=== PATIENT | male | born 1990 | race Caucasian/White ===

== ENCOUNTER 2017-07-27 10:44 | Emergency (ER) | payer SELFPAY ==
[~2017-07-27] VITALS: Ht 175.3 cm; Wt 127.0 kg
[2017-07-27] MEDS ORDERED: HYDROCODONE/ACETAMINOPHEN 5-325 MG TABLET PO ONE (11:30)
[2017-07-27] MEDS ORDERED: BUPIVACAINE HCL/PF 0.25% 10 ML VIAL INJ ONE (12:30)
[2017-07-27] MEDS ORDERED: ONDANSETRON HCL 4 MG TABLET PO ONE (14:15)
[2017-07-27 14:23] VITALS: BP 153/86
== END 2017-07-27 14:38 | disposition home or self-care (01) ==
LOC: EMS 10:47
DX: S62.617A Displaced fracture of proximal phalanx of left little finger, initial encounter for closed fracture (principal); W10.9XXA Fall (on) (from) unspecified stairs and steps, initial encounter; Y93.89 Activity, other specified; Y92.89 Other specified places as the place of occurrence of the external cause; Y99.8 Other external cause status
CPT/HCPCS: 26725; 73130; 99284; J3490; Q0162